=== PATIENT | female | born 1925 ===

== ENCOUNTER 2016-11-08 15:32 | Observation (INO) | payer MEDICAID, OTHER ==
[2016-11-08 15:43] VITALS: BMI 25.4
--- NOTE | 2016-11-08 15:48 | ED PDOC ---
Arrival/HPI - General Time Seen by Provider: 11/08/16 15:36 Historian: Patient, Family - History of Present Illness Narrative History of Present Illness (Text): 11/08/16 15:39 Madhavi Bishop is an 89 year old female whose past medical history includes COPD, Pulmonary Fibrosis, who presents to the emergency department with family member complaining of one week history of nasal congestion, cough, and chest pain secondary to cough. Patient used nebulizer machine at home with no relief. Patient in the emergency department 91% on room air. Patient/family member otherwise denies any fever, chills, body aches, shortness of breath, nausea, vomiting, diarrhea, urinary symptoms, back pain, neck pain, headache, dizziness , or any other complaints. PMD: Valnetina Cabrera MD Time/Duration: 1 week Symptom Onset: Gradual Symptom Course: Unchanged Activities at Onset: Light Context: Home Past Medical History - Provider Review Nursing Documentation Reviewed: Yes - Infectious Disease Hx of Infectious Diseases: None - Cardiac Hx Cardiac Disorders: No - Pulmonary Hx Chronic Obstructive Pulmonary Disease (COPD): Yes - Neurological Hx Neurological Disorder: Yes Other/Comment: Forgetful - HEENT Hx HEENT Disorder: No - Renal Hx Renal Disorder: No - Endocrine/Metabolic Other/Comment: thyroid problem - Hematological/Oncological Hx Blood Disorders: No - Integumentary Hx Dermatological Disorder: No - Musculoskeletal/Rheumatological Hx Musculoskeletal Disorders: No - Gastrointestinal Hx Gastrointestinal Disorders: No - Genitourinary/Gynecological Hx Genitourinary Disorders: No - Psychiatric Hx Psychophysiologic Disorder: No Hx Substance Use: No - Surgical History Hx Cholecystectomy: Yes - Anesthesia Hx Anesthesia: Yes Hx Anesthesia Reactions: No Hx Malignant Hyperthermia: No Family/Social History - Physician Review Nursing Documentation Reviewed: Yes Family/Social History: No Known Family HX Smoking Status: Never Smoked Hx Alcohol Use: No Hx Substance Use: No Allergies/Home Meds Allergies/Adverse Reactions: Allergies ibuprofen [From Motrin] Adverse Reaction (Verified 05/09/16 23:28) RASH Home Medications: Home Meds Medication Instructions Recorded Confirmed Albuterol HFA [Ventolin HFA 90 1 puff INH PRN PRN 05/09/16 05/09/16 mcg/actuation (8 g)] Budesonide/Formoterol Fumarate 1 puff INH 05/09/16 [Symbicort 160-4.5 Mcg Inhaler] Cefpodoxime Proxetil [Cefpodoxime 200 mg PO BID 05/09/16 05/09/16 Proxetil] Review of Systems - Physician Review All systems were reviewed & negative as marked: Yes - Review of Systems Constitutional: Normal. absent: Fevers Eyes: Normal ENT: Normal Respiratory: SOB, Cough, Sputum Cardiovascular: Chest Pain (secondary to cough) Gastrointestinal: Normal. absent: Abdominal Pain, Diarrhea, Nausea, Vomiting Genitourinary Female: Normal. absent: Dysuria, Frequency, Hematuria, Urine Output Changes Musculoskeletal: Normal. absent: Back Pain, Neck Pain Skin: Normal Neurological: Normal. absent: Headache, Dizziness Endocrine: Normal Hemo/Lymphatic: Normal Psychiatric: Normal Physical Exam Vital Signs Reviewed: Yes Vital Signs Temp Pulse Resp BP Pulse Ox 11/08/16 15:43 98.1 F 88 18 106/55 L 96 Temperature: Afebrile Blood Pressure: Hypertensive Pulse: Regular Respiratory Rate: Normal Appearance: Positive for: Well-Appearing, Non-Toxic, Comfortable Pain Distress: None Mental Status: Positive for: Alert and Oriented X 3 - Systems Exam Head: Present: Atraumatic, Normocephalic Pupils: Present: PERRL Extroacular Muscles: Present: EOMI Conjunctiva: Present: Normal Mouth: Present: Moist Mucous Membranes Neck: Present: Normal Range of Motion Respiratory/Chest: Present: Good Air Exchange, Rhonchi (Rhonchi Bilaterally), Tachypneic. No: Respiratory Distress, Accessory Muscle Use Cardiovascular: Present: Regular Rate and Rhythm, Normal S1, S2. No: Murmurs Abdomen: Present: Normal Bowel Sounds. No: Tenderness, Distention, Peritoneal Signs Back: Present: Normal Inspection Upper Extremity: Present: Normal Inspection. No: Cyanosis, Edema Lower Extremity: Present: Normal Inspection. No: Edema Neurological: Present: GCS=15, CN II-XII Intact, Speech Normal Skin: Present: Warm, Dry, Normal Color. No: Rashes Psychiatric: Present: Alert, Oriented x 3, Normal Insight, Normal Concentration Medical Decision Making ED Course and Treatment: 11/08/16 15:39 Impression: 89 year old female with one week history of nasal congestion, productive cough, and chest pain secondary to cough. DDx: Interstitial Lung Disease r/o COPD Exacerbation r/o PNA Plan: -- Chest X-ray -- EKG -- VBG -- Blood Culture -- Labs, cardiac enzymes, BNP -- Tylenol -- Duoneb -- Solumedrol -- Reassess and disposition Prior Visits: Notes and results from previous visits were reviewed. Patient was last seen in the emergency department on 05/10/16 for a near syncopal event. Progress Notes: 11/08/16 15:50 EKG: Ordered, reviewed, and independently interpreted the EKG. Rate : 93 BPM Rhythm : NSR Interpretation : LAD otherwise normal. 11/08/16 17:37 Patient continues to have mild tachypnea. Oxy sat 91% on RA. CXR shows chronic infiltrates R>L. Rocephin and Azithromycin IV ordered for treatment. Discussed case with Dr. Alexander who will place her on observation. - Lab Interpretations Lab Results: 11/08/16 16:15 11/08/16 16:15 Lab Results 11/08/16 16:15: Sodium 138, Chloride 105, Potassium 4.3, Carbon Dioxide 30, Anion Gap 7 L, BUN 14, Creatinine 0.8, Est GFR ( Amer) > 60, Est GFR (Non -Af Amer) > 60, Random Glucose 91, Calcium 8.3 L, Lactate Dehydrogenase 484, Total Creatine Kinase 33 L, Troponin I 0.01, NT-Pro-B Natriuret Pep 283 11/08/16 16:15: pO2 33, VBG pH 7.38, VBG pCO2 53.0, VBG HCO3 31.4 H, VBG Total CO2 33.0 H, VBG O2 Sat (Calc) 70.0 H, VBG Base Excess 4.9 H, VBG Potassium 4.4, Sodium 139.0, Chloride 109.0 H, Glucose 90, Lactate 1.0, FiO2 21.0, Venous Blood Potassium 4.4 11/08/16 16:15: WBC 9.1 D, RBC 4.23, Hgb 11.7 L, Hct 36.1, MCV 85.3, MCH 27.7, MCHC 32.4, RDW 14.8 H, Plt Count 266, MPV 8.9, Gran % 69.4 H, Lymph % (Auto) 16.3 L, Waller % (Auto) 7.2 H, Eos % (Auto) 6.8 H, Baso % (Auto) 0.3, Gran # 6.30 , Lymph # 1.5, Waller # 0.7 H, Eos # 0.6, Baso # 0.03 I have reviewed the lab results: Yes Interpretation: No clinic. lab abnormalty - RAD Interpretation Radiology Orders: 11/08/16 15:44 CHEST PORTABLE [RAD] Stat Chart Clerk: Radiologist - EKG Interpretation Interpreted by ED Physician: Yes Type: 12 lead EKG - Medication Orders Current Medication Orders: Discontinued Medications Acetaminophen (Tylenol 325mg Tab) 650 mg PO STAT STA Stop: 11/08/16 15:45 Last Admin: 11/08/16 16:26 Dose: 650 mg Albuterol/Ipratropium (Duoneb 3 Mg/0.5 Mg (3 Ml) Ud) 3 ml IH Q15M RYAN Stop: 11/08/16 16:16 Last Admin: 11/08/16 16:27 Dose: 3 ml Methylprednisolone (Solu-Medrol) 125 mg IVP STAT STA Stop: 11/08/16 15:45 Last Admin: 11/08/16 16:25 Dose: 125 mg - Hyacinthibe Statement The provider has reviewed the documentation as recorded by the Sanjuanita Rees Provider Attestation: All medical record entries made by the Sanjuanita were at my direction and personally dictated by me. I have reviewed the chart and agree that the record accurately reflects my personal performance of the history, physical exam, medical decision making, and the department course for this patient. I have also personally directed, reviewed, and agree with the discharge instructions and disposition. Disposition/Present on Arrival - Present on Arrival Any Indicators Present on Arrival: No History of DVT/PE: No History of Uncontrolled Diabetes: No Urinary Catheter: No History Surgical Site Infection Following: None - Disposition Have Diagnosis and Disposition been Completed?: Yes Diagnosis: COPD exacerbation, Pulmonary fibrosis Disposition: HOSPITALIZED Disposition Time: 17:39 Patient Plan: Admission Condition: FAIR Referrals: Valentina Cabrera MD [Primary Care Provider] - Follow up with primary
--- NOTE | 2016-11-08 16:05 | RAD ---
HISTORY: cough r/o pna COMPARISON: 05/09/2016 FINDINGS: LUNGS: There is a chronic interstitial infiltrate. There is some improvement in the right lung PLEURA: No significant pleural effusion identified, no pneumothorax apparent. CARDIOVASCULAR: Normal. OSSEOUS STRUCTURES: No significant abnormalities. VISUALIZED UPPER ABDOMEN: Normal. OTHER FINDINGS: None. IMPRESSION: Chronic interstitial infiltrate right greater than left
[2016-11-08] MEDS: Albuterol-Ipratrop 3 mg / 0.5 (3 ml) UD IH SCH ×2 (16:27→18:04)
[2016-11-08 16:42] LABS: ADD MANUAL DIFF? NO
[2016-11-08 16:48] LABS: BASO # 0.03 K/mm3 (0.0-2.0); BASO % 0.3 % (0.0-3.0); EOS # 0.6 (0.0-0.7); EOS % 6.8 % (1.5-5.0); GRAN % 69.4 % (50.0-68.0); HEMATOCRIT 36.1 % (36.0-48.0); LYMPH # 1.5 (1.2-3.4); LYMPH % 16.3 % (22.0-35.0); MEAN CELL VOLUME 85.3 fL (80.0-105.0); MEAN CORPUSCULAR HEMOGLOBIN 27.7 pg (25.0-35.0); MEAN CORPUSCULAR HGB CONC 32.4 g/dl (31.0-37.0); MEAN PLATELET VOLUME 8.9 fl (7.0-11.0); MONO # 0.7 (0.1-0.6); MONO % 7.2 % (1.0-6.0); PLATELET COUNT 266 10^3/uL (120.0-450.0); RED CELL DISTRIBUTION WIDTH 14.8 % (11.5-14.5); WHITE BLOOD COUNT 9.1 10^3/ul (4.5-11.0)
[2016-11-08 16:49] LABS: VENOUS BLOOD GAS BASE EXCESS 4.9 mmol/L (0.0-2.0); VENOUS BLOOD PH 7.38 (7.32-7.43)
[2016-11-08 17:07] LABS: BLOOD UREA NITROGEN 14 mg/dL (7-21); CALCIUM 8.3 mg/dL (8.4-10.5); CARBON DIOXIDE 30 mmol/L (21-33); CHLORIDE 105 mmol/L (98-107); GFR AFRICAN-AMERICAN > 60; GLUCOSE,RANDOM 91 mg/dL (70-110); POTASSIUM 4.3 mmol/L (3.6-5.0); SODIUM 138 mmol/L (132-148)
[2016-11-08 17:20] LABS: TROPONIN I 0.01 ng/mL
[2016-11-08] MEDS ORDERED: cefTRIAXone 1 gm 1 GM/100 ML BAG IVPB STA (17:36)
[2016-11-08] MEDS ORDERED: guaiFENesin 200 mg/10 ml Syrup UD PO PRN (17:57)
[2016-11-08] MEDS ORDERED: Levalbuterol 0.63 MG/3 ML Inhal Soln UD IH PRN (18:18)
--- NOTE | 2016-11-08 18:30 | CP.PCM.HP ---
<Lizzette Miller - Last Filed: 11/08/16 18:25> History of Present Illness - History of Present Illness History of Present Illness: CC; CP with coughing 89 year old female with past medical history of COPD and pulm fibrosis presents to ED for shortness of breath x 2 weeks and CP since yesterday. History is obtained through guest relations manager from daughter and patient. Patient has been feeling short of breath x 2 weeks progressively worsening with productive cough. She is producing whitish sputum. She developed chest [ain in center of chest yesterday only present with coughing. Pain feels like a weakness. Patient has been using her inhlaers at home without relief. She uses 2.5 L of home O2 constantly. Patient denies having any CP currently. Patient does feel SOB right now. She denies having any fevers, chills, abd pain, N/V/D/C, urinary symptoms. Pmhx: stated above Sx: cholecystectomy, cataracts Allergies: ibuprofen, rash Meds: albuterol, budesonide, formetorol Social: denies smoking PMD: Dr. Cabrera Present on Admission - Present on Admission Any Indicators Present on Admission: No Past Patient History - Infectious Disease Hx of Infectious Diseases: None - Past Social History Smoking Status: Never Smoked Chewing Tobacco Use: No Cigar Use: No Alcohol: None Drugs: Denies - CARDIAC Hx Cardiac Disorders: No - PULMONARY Hx Chronic Obstructive Pulmonary Disease (COPD): Yes - NEUROLOGICAL Hx Neurological Disorder: Yes Other/Comment: Forgetful - HEENT Hx HEENT Problems: No - RENAL Hx Chronic Kidney Disease: No - ENDOCRINE/METABOLIC Other/Comment: thyroid problem - HEMATOLOGICAL/ONCOLOGICAL Hx Blood Disorders: No - INTEGUMENTARY Hx Dermatological Problems: No - MUSCULOSKELETAL/RHEUMATOLOGICAL Hx Musculoskeletal Disorders: No - GASTROINTESTINAL Hx Gastrointestinal Disorders: No - GENITOURINARY/GYNECOLOGICAL Hx Genitourinary Disorders: No - PSYCHIATRIC Hx Psychophysiologic Disorder: No Hx Substance Use: No - SURGICAL HISTORY Hx Cholecystectomy: Yes - ANESTHESIA Hx Anesthesia: Yes Hx Anesthesia Reactions: No Hx Malignant Hyperthermia: No Meds Allergies/Adverse Reactions: Allergies Allergy/AdvReac Type Severity Reaction Status Date / Time ibuprofen [From Motrin] AdvReac RASH Verified 05/09/16 23:28 Physical Exam - Constitutional Appears: Non-toxic, No Acute Distress - Head Exam Head Exam: ATRAUMATIC - ENT Exam ENT Exam: Mucous Membranes Moist - Respiratory Exam Respiratory Exam: Rhonchi. absent: Accessory Muscle Use, Rales, Wheezes, Respiratory Distress - Cardiovascular Exam Cardiovascular Exam: Tachycardia, REGULAR RHYTHM, +S1, +S2. absent: Gallop, Rubs - GI/Abdominal Exam GI & Abdominal Exam: Normal Bowel Sounds, Soft. absent: Distended, Firm, Guarding, Rigid, Tenderness - Extremities Exam Extremities exam: Negative for: pedal edema, tenderness - Neurological Exam Neurological exam: Alert, Oriented x3 - Psychiatric Exam Psychiatric exam: Normal Affect, Normal Mood - Skin Skin Exam: Dry, Intact, Normal Color, Warm Results - Vital Signs Recent Vital Signs: Last Vital Signs Temp 98.1 F 11/08/16 15:43 Pulse 79 11/08/16 18:00 Resp 18 11/08/16 18:00 BP 108/59 L 11/08/16 18:00 Pulse Ox 96 11/08/16 18:00 - Labs Result Diagrams: 11/08/16 16:15 11/08/16 16:15 Labs: Laboratory Results - last 24 hr 11/08/16 11/08/16 11/08/16 16:15 16:15 16:15 WBC 9.1 D RBC 4.23 Hgb 11.7 L Hct 36.1 MCV 85.3 MCH 27.7 MCHC 32.4 RDW 14.8 H Plt Count 266 MPV 8.9 Gran % 69.4 H Lymph % (Auto) 16.3 L Karnes % (Auto) 7.2 H Eos % (Auto) 6.8 H Baso % (Auto) 0.3 Gran # 6.30 Lymph # 1.5 Karnes # 0.7 H Eos # 0.6 Baso # 0.03 pO2 33 VBG pH 7.38 VBG pCO2 53.0 VBG HCO3 31.4 H VBG Total CO2 33.0 H VBG O2 Sat (Calc) 70.0 H VBG Base Excess 4.9 H VBG Potassium 4.4 Sodium 139.0 138 Chloride 109.0 H 105 Glucose 90 Lactate 1.0 FiO2 21.0 Potassium 4.3 Carbon Dioxide 30 Anion Gap 7 L BUN 14 Creatinine 0.8 Est GFR ( Amer) > 60 Est GFR (Non-Af Amer) > 60 Random Glucose 91 Calcium 8.3 L Lactate Dehydrogenase 484 Total Creatine Kinase 33 L Troponin I 0.01 NT-Pro-B Natriuret Pep 283 Venous Blood Potassium 4.4 - EKG Data EKG Interpreted by: ER Physician Assessment & Plan - Assessment and Plan (Free Text) Assessment: 89 year old female with past medical history of COPD and pulm fibrosis is admitted for COPD exacerbation and CP r/o ACS. CXR done on admission showed chronic interstitial infiltrates. Initial trops are negative and EKG showed no ST changes. ProBNP is normal. 1. CP r/o ACS - Will get serial trops and EKG - Will check HGB A 1c and lipid panel - Patient will be admitted to tele 2. COPD exacerbation - Patient will be started on azithromax and rocephin - Will check procal level - Xopenex - Robitussin - Tylenol prn fevers, pain - NC prn - Will check legionella and strep test Prophylaxis - Protonix - SCDs Case discussed with attending, Dr. Alexander - Date & Time Date: 11/08/16 Time: 18:42 <Dora Alexander - Last Filed: 11/09/16 06:24> Results - Vital Signs Recent Vital Signs: Last Vital Signs Temp 97.5 F L 11/09/16 00:00 Pulse 80 11/09/16 00:00 Resp 20 11/09/16 00:00 BP 123/60 11/09/16 00:00 Pulse Ox 98 11/09/16 00:00 - Labs Result Diagrams: 11/08/16 16:15 11/08/16 16:15 Labs: Laboratory Results - last 24 hr 11/08/16 23:00 Lactate Dehydrogenase 421 Total Creatine Kinase 31 L Troponin I < 0.01 Attending/Attestation - Attestation I have personally seen and examined this patient.: Yes I have fully participated in the care of the patient.: Yes I have reviewed all pertinent clinical information: Yes Notes (Text): 11/08/16 89 year old female with past medical history of COPD and pulmonary fibrosis who presents with complaint of cough and shortness of breath for the past 2 weeks. Also complains of chest tightness associated with cough. CXR reviewed which shows chronic interstitial infiltrates (R>L). Will start iv steroids and antibiotics for COPD exacerbation with interstitial findings on CXR. Will start xopenex given sinus tachycardia on the monitor. Continue with robitussin prn for cough. Serial cardiac enzymes are ordered. Recent echocardiogram was reviewed. Daughter is also at bedside and questions were answered. Dora Alexander MD Hospitalist.
[2016-11-08] MEDS: MethylPREDNISolone 40 mg Vial IVP SCH (21:00)
[2016-11-09 00:16] LABS: TROPONIN I < 0.01 ng/mL
[2016-11-09] MEDS: MethylPREDNISolone 40 mg Vial IVP SCH ×3 (05:40→21:38)
[2016-11-09] MEDS: Pantoprazole 40 mg EC Tab PO SCH (05:40)
[2016-11-09 08:17] LABS: TROPONIN I < 0.01 ng/mL
[2016-11-09 08:20] LABS: MEAN CELL VOLUME 84.1 fL (80.0-105.0); MEAN CORPUSCULAR HEMOGLOBIN 27.6 pg (25.0-35.0); MEAN CORPUSCULAR HGB CONC 32.9 g/dl (31.0-37.0); MEAN PLATELET VOLUME 9.2 fl (7.0-11.0); RED CELL DISTRIBUTION WIDTH 14.6 % (11.5-14.5); WHITE BLOOD COUNT 6.4 10^3/ul (4.5-11.0)
[2016-11-09 08:31] LABS: BLOOD UREA NITROGEN 17 mg/dL (7-21); CALCIUM 8.5 mg/dL (8.4-10.5); CARBON DIOXIDE 27 mmol/L (21-33); CHLORIDE 106 mmol/L (98-107); GFR AFRICAN-AMERICAN > 60; GLUCOSE,RANDOM 124 mg/dL (70-110); POTASSIUM 4.7 mmol/L (3.6-5.0); SODIUM 139 mmol/L (132-148)
[2016-11-09] MEDS: cefTRIAXone 1 gm 1 GM/100 ML BAG IVPB SCH (10:16)
[2016-11-09] MEDS: Azithromycin 500MG/NS 250ml 500 MG/250 ML BAG IVPB SCH (10:16)
--- NOTE | 2016-11-09 12:11 | CARD ---
APPROVED REPORT EKG Measurement Heart [id number] <Conclusion> Normal sinus rhythm Left axis deviation Abnormal ECG
--- NOTE | 2016-11-09 16:25 | CP.PCM.PN ---
<Karen Doty - Last Filed: 11/09/16 16:48> Subjective - Date & Time of Evaluation Date of Evaluation: 11/09/16 Time of Evaluation: 08:20 - Subjective Subjective: Pt seen and evaluated at bedside. Pt reports less SOB, and denies chest pain and abdominal pain. Afebrile overnight. Objective - Vital Signs/Intake and Output Vital Signs (last 24 hours): Temp Pulse Resp BP Pulse Ox 98.0 F 78 22 116/64 98 11/09/16 06:00 11/09/16 14:00 11/09/16 06:00 11/09/16 06:00 11/09/16 06:00 - Medications Medications: Current Medications Acetaminophen (Tylenol 325mg Tab) 650 mg PO Q4 PRN PRN Reason: Fever >100.4 F Guaifenesin (Robitussin) 200 mg PO Q4H PRN PRN Reason: Cough and congestion Last Admin: 11/08/16 21:00 Dose: 200 mg Ceftriaxone Sodium (Rocephin 1 Gram Ivpb) 1 gm in 100 mls @ 100 mls/hr IVPB DAILY RYAN PRN Reason: Protocol Last Admin: 11/09/16 10:16 Dose: 100 mls/hr Azithromycin (Zithromax 500mg In Ns) 500 mg in 250 mls @ 167 mls/hr IVPB DAILY RYAN PRN Reason: Protocol Last Admin: 11/09/16 10:16 Dose: 167 mls/hr Levalbuterol HCl (Xopenex) 0.63 mg IH [id number] PRN PRN Reason: Shortness of Breath Methylprednisolone (Solu-Medrol) 20 mg IVP Q8H [facility] Last Admin: 11/09/16 14:30 Dose: 20 mg Pantoprazole Sodium (Protonix Ec Tab) 40 mg PO 0630 [facility] Last Admin: 11/09/16 05:40 Dose: 40 mg - Labs Labs: 11/09/16 07:00 11/09/16 07:00 - Constitutional Appears: Non-toxic, No Acute Distress - Head Exam Head Exam: ATRAUMATIC, NORMOCEPHALIC - Eye Exam Eye Exam: EOMI, Normal appearance - Respiratory Exam Respiratory Exam: NORMAL BREATHING PATTERN Additional comments: crackles - Cardiovascular Exam Cardiovascular Exam: +S1, +S2. absent: Bradycardia - GI/Abdominal Exam GI & Abdominal Exam: Soft. absent: Tenderness - Exam External exam: absent: Ecchymosis, Erythema - Extremities Exam Extremities Exam: Normal Capillary Refill. absent: Pedal Edema - Back Exam Back Exam: absent: CVA tenderness (L), CVA tenderness (R) - Neurological Exam Neurological Exam: Alert, Awake - Skin Skin Exam: Dry, Intact Assessment and Plan - Assessment and Plan (Free Text) Plan: 89 year old female with past medical history of COPD and pulm fibrosis is admitted for COPD exacerbation and CP r/o ACS. CXR done on admission showed chronic interstitial infiltrates R>L. Initial trops are negative and EKG showed no ST changes. ProBNP is normal. COPD exacerbation - Continue azithromax and rocephin - pending procal level - Xopenex - Robitussin - Tylenol prn fevers, pain - NC prn - Pending legionella and strep test CP r/o ACS troponin 0.01 x 3, negative EKG: NSR 93, no ST elevations, depressions or LBBB - Pending HGB A 1c and lipid panel - Admitted to telemetry Prophylaxis - Protonix - SCDs Case discussed with attending, Dr. Alexander <Dora Alexander - Last Filed: 11/09/16 17:00> Objective - Vital Signs/Intake and Output Vital Signs (last 24 hours): Temp Pulse Resp BP Pulse Ox 98.0 F 78 22 116/64 98 11/09/16 06:00 11/09/16 14:00 11/09/16 06:00 11/09/16 06:00 11/09/16 06:00 - Medications Medications: Current Medications Acetaminophen (Tylenol 325mg Tab) 650 mg PO Q4 PRN PRN Reason: Fever >100.4 F Guaifenesin (Robitussin) 200 mg PO Q4H PRN PRN Reason: Cough and congestion Last Admin: 11/08/16 21:00 Dose: 200 mg Ceftriaxone Sodium (Rocephin 1 Gram Ivpb) 1 gm in 100 mls @ 100 mls/hr IVPB DAILY RYAN PRN Reason: Protocol Last Admin: 11/09/16 10:16 Dose: 100 mls/hr Azithromycin (Zithromax 500mg In Ns) 500 mg in 250 mls @ 167 mls/hr IVPB DAILY RYAN PRN Reason: Protocol Last Admin: 11/09/16 10:16 Dose: 167 mls/hr Levalbuterol HCl (Xopenex) 0.63 mg IH [id number] PRN PRN Reason: Shortness of Breath Methylprednisolone (Solu-Medrol) 20 mg IVP Q8H [facility] Last Admin: 11/09/16 14:30 Dose: 20 mg Pantoprazole Sodium (Protonix Ec Tab) 40 mg PO 0630 [facility] Last Admin: 11/09/16 05:40 Dose: 40 mg Attending/Attestation - Attestation I have personally seen and examined this patient.: Yes I have fully participated in the care of the patient.: Yes I have reviewed all pertinent clinical information, including history, physical exam and plan: Yes Notes (Text): 11/09/16 16:58 89 year old female with past medical history of COPD and pulmonary fibrosis who presented with complaint of cough and shortness of breath for the past 2 weeks along with chest tightness associated with cough. CXR showed chronic interstitial infiltrates (R>L). She was started on iv steroids and antibiotics for COPD exacerbation with interstitial findings on CXR. She is also on xopenex and robitussin. Serial cardiac enzymes were negative and ACS was ruled out. This morning she states she is feeling slightly better though still gets dyspneic with exertion. Continue with management as above. She is on home O2. Out of bed to chair. Daughter is also at bedside and questions were answered. Anticipate d/c planning in 24-48 hrs. Dora Alexander MD Hospitalist.
[2016-11-10] MEDS: MethylPREDNISolone 40 mg Vial IVP SCH (05:55)
[2016-11-10] MEDS: Pantoprazole 40 mg EC Tab PO SCH (05:56)
[2016-11-10 09:23] LABS: BLOOD UREA NITROGEN 22 mg/dL (7-21); CALCIUM 8.3 mg/dL (8.4-10.5); CARBON DIOXIDE 27 mmol/L (21-33); CHLORIDE 106 mmol/L (98-107); CHOLESTEROL 189 mg/dL (130-200); GFR AFRICAN-AMERICAN > 60; GLUCOSE,RANDOM 111 mg/dL (70-110); POTASSIUM 4.4 mmol/L (3.6-5.0); SODIUM 139 mmol/L (132-148)
[2016-11-10 09:24] LABS: HEMATOCRIT 35.9 % (36.0-48.0); MEAN CELL VOLUME 85.3 fL (80.0-105.0); MEAN CORPUSCULAR HEMOGLOBIN 27.6 pg (25.0-35.0); MEAN CORPUSCULAR HGB CONC 32.3 g/dl (31.0-37.0); MEAN PLATELET VOLUME 9.4 fl (7.0-11.0); RED CELL DISTRIBUTION WIDTH 14.8 % (11.5-14.5); WHITE BLOOD COUNT 11.5 10^3/ul (4.5-11.0)
[2016-11-10] MEDS: Azithromycin 500MG/NS 250ml 500 MG/250 ML BAG IVPB SCH (10:05)
[2016-11-10] MEDS: cefTRIAXone 1 gm 1 GM/100 ML BAG IVPB SCH (10:05)
[2016-11-10 11:07] VITALS: BP 133/74; PULSE 76; RESP 20; TEMP 98.3; O2SAT 97
--- NOTE | 2016-11-10 13:15 | CP.PCM.DIS ---
<Karen Doty - Last Filed: 11/11/16 17:03> Provider - Provider Date of Admission: 11/09/16 16:44 Attending physician: Valentina Moyer MD Primary care physician: Valentina Cabrera MD Consults: none Time Spent in preparation of Discharge (in minutes): 35 Hospital Course - Lab Results Lab Results: Most Recent Lab Values WBC 11.5 10^3/ul (4.5-11.0) H D 11/10/16 08:00 RBC 4.21 10^6/uL (3.5-6.1) 11/10/16 08:00 Hgb 11.6 gm/dL (12.0-16.0) L 11/10/16 08:00 Hct 35.9 % (36.0-48.0) L 11/10/16 08:00 MCV 85.3 fL (80.0-105.0) 11/10/16 08:00 MCH 27.6 pg (25.0-35.0) 11/10/16 08:00 MCHC 32.3 g/dl (31.0-37.0) 11/10/16 08:00 RDW 14.8 % (11.5-14.5) H 11/10/16 08:00 Plt Count 296 10^3/uL (120.0-450.0) 11/10/16 08:00 MPV 9.4 fl (7.0-11.0) 11/10/16 08:00 Gran % 69.4 % (50.0-68.0) H 11/08/16 16:15 Lymph % (Auto) 16.3 % (22.0-35.0) L 11/08/16 16:15 Pettis % (Auto) 7.2 % (1.0-6.0) H 11/08/16 16:15 Eos % (Auto) 6.8 % (1.5-5.0) H 11/08/16 16:15 Baso % (Auto) 0.3 % (0.0-3.0) 11/08/16 16:15 Gran # 6.30 (1.4-6.5) 11/08/16 16:15 Lymph # 1.5 (1.2-3.4) 11/08/16 16:15 Pettis # 0.7 (0.1-0.6) H 11/08/16 16:15 Eos # 0.6 (0.0-0.7) 11/08/16 16:15 Baso # 0.03 K/mm3 (0.0-2.0) 11/08/16 16:15 pO2 33 mm/Hg (30-55) 11/08/16 16:15 VBG pH 7.38 (7.32-7.43) 11/08/16 16:15 VBG pCO2 53.0 (40-60) 11/08/16 16:15 VBG HCO3 31.4 mmol/l (21-28) H 11/08/16 16:15 VBG Total CO2 33.0 mmol.L (22-28) H 11/08/16 16:15 VBG O2 Sat (Calc) 70.0 % (40-65) H 11/08/16 16:15 VBG Base Excess 4.9 mmol/L (0.0-2.0) H 11/08/16 16:15 VBG Potassium 4.4 mmol/L (3.6-5.2) 11/08/16 16:15 Sodium 139.0 mmol/L (132-148) 11/08/16 16:15 Chloride 109.0 mmol/L (98-107) H 11/08/16 16:15 Glucose 90 mg/dl (65-105) 11/08/16 16:15 Lactate 1.0 mmol/L (0.7-2.1) 11/08/16 16:15 FiO2 21.0 % 11/08/16 16:15 Sodium 139 mmol/L (132-148) 11/10/16 06:00 Potassium 4.4 mmol/L (3.6-5.0) 11/10/16 06:00 Chloride 106 mmol/L (98-107) 11/10/16 06:00 Carbon Dioxide 27 mmol/L (21-33) 11/10/16 06:00 Anion Gap 10 (10-20) 11/10/16 06:00 BUN 22 mg/dL (7-21) H 11/10/16 06:00 Creatinine 0.7 mg/dL (0.5-1.4) 11/10/16 06:00 Est GFR ( Amer) > 60 11/10/16 06:00 Est GFR (Non-Af Amer) > 60 11/10/16 06:00 Random Glucose 111 mg/dL (70-110) H 11/10/16 06:00 Hemoglobin A1c 6.2 % (4.2-6.5) 11/10/16 06:00 Calcium 8.3 mg/dL (8.4-10.5) L 11/10/16 06:00 Lactate Dehydrogenase 422 U/L (333-699) 11/09/16 07:47 Total Creatine Kinase 27 U/L (35-230) L 11/09/16 07:47 Troponin I < 0.01 ng/mL 11/09/16 07:47 NT-Pro-B Natriuret Pep 283 pg/mL (0-450) 11/08/16 16:15 Triglycerides 81 mg/dL (35-160) 11/10/16 06:00 Cholesterol 189 mg/dL (130-200) 11/10/16 06:00 LDL Cholesterol Direct 119 mg/dL (0-129) 11/10/16 06:00 HDL Cholesterol 47 mg/dL (29-60) 11/10/16 06:00 Procalcitonin <= 0.05 NG/ML (0.19-0.49) L 11/10/16 06:00 Venous Blood Potassium 4.4 mmol/L (3.6-5.2) 11/08/16 16:15 - Hospital Course Hospital Course: 89 year old female with past medical history of COPD and pulmonary fibrosis who presents with complaint of cough and shortness of breath for the past 2 weeks. Also complains of chest tightness associated with cough. Pt is on home oxygen of 2.5 L. CXR reviewed which shows chronic interstitial infiltrates (R>L). Initial trops are negative and EKG showed no ST changes. ProBNP is normal. Transferred to telemetry for COPD Exacerbation, Pulmonary Fibrosis. On floor, iv steroids, xopenex and antibiotics for COPD exacerbation with interstitial findings on CXR. Robitussin prn for cough. Serial cardiac enzymes are negative x 3. Cough and dyspnea improved over course of admission and no fever throughout stay. Pt discharged in stable condition with the following instructions: You are discharged home. Please resume all home medications and start new medications of medrol dose pack #21 4mg tabs with standard taper, and azithromycin 500 mg by mouth once daily (three days). Standard taper for medrol dose pack, take by mouth: [Day 1] two tabs by mouth , three times in one day, [Day 2] one tab, five times in one day, [Day 3] one tab, four times in one day, [Day 4] one tab, three times in one day [Day 5] one tab, two times in one day, [Day 6] one tab in the day. Please see your primary care physician Dr. Cabrera within one week. Please return to emergency department for worsening of symptoms. Discharge Exam - Head Exam Head Exam: ATRAUMATIC, NORMOCEPHALIC - Eye Exam Eye Exam: EOMI, Normal appearance Pupil Exam: NORMAL ACCOMODATION, PERRL - Respiratory Exam Respiratory Exam: NORMAL BREATHING PATTERN, UNREMARKABLE - Cardiovascular Exam Cardiovascular Exam: +S1, +S2. absent: Bradycardia - GI/Abdominal Exam GI & Abdominal Exam: Soft. absent: Tenderness - Exam External exam: absent: Lacerations, Lesions - Back Exam Back exam: absent: CVA tenderness (L), CVA tenderness (R) - Neurological Exam Neurological exam: Alert - Skin Skin Exam: Intact, Normal Color Discharge Plan - Discharge Medications Prescriptions: Azithromycin [Zithromax Tri-Demond] 500 mg PO DAILY #3 tablet Methylprednisolone [Medrol Dose Pack (21 tabs)] See Taper PO DAILY #21 mg - Follow Up Plan Condition: STABLE Disposition: HOME/ ROUTINE Instructions: Pulmonary Fibrosis (DC), COPD (Chronic Obstructive Pulmonary Disease) (DC) Additional Instructions: You are discharged home. Please resume all home medications and start new medications of medrol dose pack #21 4mg tabs with standard taper, and azithromycin 500 mg by mouth once daily. Standard taper for medrol dose pack, take by mouth: [Day 1] two tabs by mouth , three times in one day, [Day 2] one tab, five times in one day, [Day 3] one tab, four times in one day, [Day 4] one tab, three times in one day [Day 5] one tab, two times in one day, [Day 6] one tab in the day. Please see your primary care physician Dr. Cabrera within one week. Please return to emergency department for worsening of symptoms. Referrals: Valentina Cabrera MD [Primary Care Provider] - <João JOHNSON,Valentina - Last Filed: 11/12/16 14:01> Provider - Provider Date of Admission: 11/09/16 16:44 Attending physician: Valentina Moyer MD Primary care physician: Valentina Cabrera MD Hospital Course - Lab Results Lab Results: Most Recent Lab Values WBC 11.5 10^3/ul (4.5-11.0) H D 11/10/16 08:00 RBC 4.21 10^6/uL (3.5-6.1) 11/10/16 08:00 Hgb 11.6 gm/dL (12.0-16.0) L 11/10/16 08:00 Hct 35.9 % (36.0-48.0) L 11/10/16 08:00 MCV 85.3 fL (80.0-105.0) 11/10/16 08:00 MCH 27.6 pg (25.0-35.0) 11/10/16 08:00 MCHC 32.3 g/dl (31.0-37.0) 11/10/16 08:00 RDW 14.8 % (11.5-14.5) H 11/10/16 08:00 Plt Count 296 10^3/uL (120.0-450.0) 11/10/16 08:00 MPV 9.4 fl (7.0-11.0) 11/10/16 08:00 Gran % 69.4 % (50.0-68.0) H 11/08/16 16:15 Lymph % (Auto) 16.3 % (22.0-35.0) L 11/08/16 16:15 Pettis % (Auto) 7.2 % (1.0-6.0) H 11/08/16 16:15 Eos % (Auto) 6.8 % (1.5-5.0) H 11/08/16 16:15 Baso % (Auto) 0.3 % (0.0-3.0) 11/08/16 16:15 Gran # 6.30 (1.4-6.5) 11/08/16 16:15 Lymph # 1.5 (1.2-3.4) 11/08/16 16:15 Pettis # 0.7 (0.1-0.6) H 11/08/16 16:15 Eos # 0.6 (0.0-0.7) 11/08/16 16:15 Baso # 0.03 K/mm3 (0.0-2.0) 11/08/16 16:15 pO2 33 mm/Hg (30-55) 11/08/16 16:15 VBG pH 7.38 (7.32-7.43) 11/08/16 16:15 VBG pCO2 53.0 (40-60) 11/08/16 16:15 VBG HCO3 31.4 mmol/l (21-28) H 11/08/16 16:15 VBG Total CO2 33.0 mmol.L (22-28) H 11/08/16 16:15 VBG O2 Sat (Calc) 70.0 % (40-65) H 11/08/16 16:15 VBG Base Excess 4.9 mmol/L (0.0-2.0) H 11/08/16 16:15 VBG Potassium 4.4 mmol/L (3.6-5.2) 11/08/16 16:15 Sodium 139.0 mmol/L (132-148) 11/08/16 16:15 Chloride 109.0 mmol/L (98-107) H 11/08/16 16:15 Glucose 90 mg/dl (65-105) 11/08/16 16:15 Lactate 1.0 mmol/L (0.7-2.1) 11/08/16 16:15 FiO2 21.0 % 11/08/16 16:15 Sodium 139 mmol/L (132-148) 11/10/16 06:00 Potassium 4.4 mmol/L (3.6-5.0) 11/10/16 06:00 Chloride 106 mmol/L (98-107) 11/10/16 06:00 Carbon Dioxide 27 mmol/L (21-33) 11/10/16 06:00 Anion Gap 10 (10-20) 11/10/16 06:00 BUN 22 mg/dL (7-21) H 11/10/16 06:00 Creatinine 0.7 mg/dL (0.5-1.4) 11/10/16 06:00 Est GFR ( Amer) > 60 11/10/16 06:00 Est GFR (Non-Af Amer) > 60 11/10/16 06:00 Random Glucose 111 mg/dL (70-110) H 11/10/16 06:00 Hemoglobin A1c 6.2 % (4.2-6.5) 11/10/16 06:00 Calcium 8.3 mg/dL (8.4-10.5) L 11/10/16 06:00 Lactate Dehydrogenase 422 U/L (333-699) 11/09/16 07:47 Total Creatine Kinase 27 U/L (35-230) L 11/09/16 07:47 Troponin I < 0.01 ng/mL 11/09/16 07:47 NT-Pro-B Natriuret Pep 283 pg/mL (0-450) 11/08/16 16:15 Triglycerides 81 mg/dL (35-160) 11/10/16 06:00 Cholesterol 189 mg/dL (130-200) 11/10/16 06:00 LDL Cholesterol Direct 119 mg/dL (0-129) 11/10/16 06:00 HDL Cholesterol 47 mg/dL (29-60) 11/10/16 06:00 Procalcitonin <= 0.05 NG/ML (0.19-0.49) L 11/10/16 06:00 Venous Blood Potassium 4.4 mmol/L (3.6-5.2) 11/08/16 16:15 Attending/Attestation - Attestation I have personally seen and examined this patient.: Yes I have fully participated in the care of the patient.: Yes I have reviewed all pertinent clinical information, including history, physical exam and plan: Yes Notes (Text): 11/12/16 13:59 Patient was seen and examined with medical insurance claims specialist .Agreed with resident assessment and plan. 89 year old female with past medical history of COPD and pulmonary fibrosis who presented with complaint of cough and shortness of breath for the past 2 weeks along with chest tightness associated with cough. CXR showed chronic interstitial infiltrates (R>L). She was treated wit Nebs/ Iv steroids and antibiotics, she has responded well, coug and dyspnea has improved.She is at her base line hypoxia at the time of discharge Serial cardiac enzymes were negative and ACS was ruled out. She will be discharged home and will follow up with PCP Management plan was discussed in detail with patient Education was provided.
== END 2016-11-10 15:34 | disposition home or self-care (01) ==
LOC: ED 15:32 → ERH 17:39 → 3RNO 20:17 → OBSVTOIN 11-09 16:44 → INTOOBSV 11-09 16:44
PROVIDERS: ADMIT Internal Medicine; ATTEND Internal Medicine
DX: J44.1 Chronic obstructive pulmonary disease with (acute) exacerbation (principal); J84.10 Pulmonary fibrosis, unspecified; Z99.81 Dependence on supplemental oxygen; Z90.49 Acquired absence of other specified parts of digestive tract
CPT/HCPCS: 36415; 71010; 80048; 80061; 82550; 82803; 83036; 83615; 83880; 84145; 84484; 85025; 85027; 87040; 93005; 96374; 99284; G0378; J0456; J0696; J2920; J2930